=== PATIENT | male | born 1985 | race Caucasian/White ===

== ENCOUNTER → 2022-12-06 15:02 | Outpatient (CLI) | payer OTHER, SELFPAY ==
--- NOTE | ~2022-12-06 | XR_ITS ---
EXAMINATION:XR_[id number]_CR DATE: 12/06/2022 15:14 INDICATION: Neck pain TECHNIQUE: AP, lateral, and odontoid views of the cervical spine are provided. COMPARISON: None FINDINGS: Alignment is normal. The odontoid process is intact. No fracture is identified. The vertebr al body heights are maintained. There is mild loss of intervertebral disc space height at C3-4 and C5 -6. Prevertebral soft tissues are normal. IMPRESSION: 1. Mild cervical spondylosis without acute findings. Reviewed, dictated and finalized at location B.
== END ==
PROVIDERS: PCP Internal Medicine; Visit Provider Clinical Nurse Specialist
DX: M47.892 Other spondylosis, cervical region (principal)
CPT/HCPCS: 72040

== ENCOUNTER 2023-01-28 09:48 | Emergency (ER) | payer OTHER, SELFPAY ==
[2023-01-28 09:52] VITALS: BP 138/94; PULSE 90; TEMP 36.7; O2SAT 99
--- NOTE | 2023-01-28 09:53 | ED.EXTPRO ---
HPI - Extremity Problem General Chief complaint: Extremity Problem,Nontraumatic Stated complaint: left leg swelling Time Seen by Provider: 01/28/23 09:53 Source: patient Mode of arrival: ambulatory Limitations: no limitations History of Present Illness HPI Narrative: 37 years old white male was cutting the grass suddenly felt sharp stabbing pain at the lateral side of the calf muscles, not sure if it is a mosquito bite or something else. Patient is concerned about blood Related Data Home Medications Medication Instructions Recorded Confirmed No Home Medications 12/06/22 12/06/22 Allergies Allergy/AdvReac Type Severity Reaction Status Date / Time No Known Allergies Allergy Verified 01/28/23 10:04 Review of Systems Review of Systems: All systems reviewed & are unremarkable except as noted in HPI and below PMFSH Social History Social History Smoking status: Never smoker Alcohol intake: never Substance use: never Lack of Transportation: No Lack of Food: Never True Current Housing: I Have Housing Concerned About Future Housing: No Difficulty Paying Gas/Electric Bills: No Difficulty Paying for Meds: No Currently Unemployed: No Education: Bachelor's Degree Difficulty w/ Childcare or Family Care: No Exam Narrative: General appearance: Well-developed, well-nourished Skin: Normal color Chest and respiratory: Airway patent, no respiratory distress, no accessory muscle use Heart: Regular rate/rhythm Vascular: Normal peripheral pulses, normal capillary refill. Musculoskeletal: Left lower leg exam showed 2.3 cm discolored skin at the left side of the lower leg, consistent with bruises less likely mosquito bite, there is no erythema, there is no rash. Neurologic: Alert and oriented ?3, KITCHEN MANAGER is normal as tested, no gross motor deficit Course Vital Signs Vital signs: Vital Signs Temperature 36.7 C 01/28/23 09:52 Pulse Rate 90 01/28/23 09:52 Blood Pressure 138/94 H 01/28/23 09:52 Pulse Oximetry 99 01/28/23 09:52 Temperature 36.7 C 01/28/23 09:52 Pulse Rate 90 01/28/23 09:52 Blood Pressure 138/94 H 01/28/23 09:52 Pulse Oximetry 99 01/28/23 09:52 MDM - Extremity (Nontraumatic) MDM Narrative Medical decision making narrative: On exam patient have slight bruises at the lateral side of left leg, slightly tender to touch, contusion/bruise this is my concern, mosquito bite is less likely. The calf muscle is soft, nontender, deep vein thrombosis is extremely less likely. Patient does not have any risk factors, physical examination is not consistent with deep vein thrombosis. Patient to be discharged on Tylenol, ibuprofen as needed,. D-dimer was ordered by the triage nurse prior to my examination Differential Diagnosis Differential diagnosis: Likely other (Bruises, contusion, insect bite) Critical Care Time Critical Care Time Critical Care Time: No Discharge Plan Discharge Clinical Impression: Contusion of left leg Qualifiers: Encounter type: initial encounter Qualified Code(s): S80.12XA - Contusion of left lower leg, initial encounter Patient Disposition: Home, Self-Care Condition: Stable Instructions: Antibiotic Form, Contusion in Adults (ED) Additional Instructions: Return if symptoms are worsening , call your family physician for appointment, take Tylenol as as needed for aches and pain, continue home medications., Tylenol, ibuprofen as needed Prescriptions: No Action No Home Medications Follow-up/Referrals: Chas Leon, [Primary Care Provider] -
[2023-01-28 10:27] LABS: D Dimer < 0.27 ug/mL (<0.48)
== END 2023-01-28 10:33 | disposition home or self-care (01) ==
PROVIDERS: Emergency Provider Emergency Medicine; PCP Internal Medicine
DX: S80.12XA Contusion of left lower leg, initial encounter (principal); X58.XXXA Exposure to other specified factors, initial encounter
CPT/HCPCS: 36415; 85380; 99283

== ENCOUNTER 2023-08-14 09:52 | Emergency (ER) | payer OTHER, SELFPAY ==
--- NOTE | 2023-08-14 10:05 | ED.URI ---
HPI - URI/Sore Throat General Chief Complaint: Upper Respiratory Infection Stated Complaint: sorethroat Source: patient, RN notes reviewed and old records reviewed Mode of arrival: ambulatory Limitations: no limitations History of Present Illness HPI Narrative: 38-year-old male presents to [facility] with complaints of myalgias for 2 days with sore throat. Patient denies dizziness, weakness, shortness of breath, chest pain, vomiting. patient using throat lozenges with little relief. MD elicited complaint: sore throat Onset (ago): day(s) (2) Related Data Allergies Allergy/AdvReac Type Severity Reaction Status Date / Time No Known Allergies Allergy Verified 08/14/23 10:19 Review of Systems Constitutional: Constitutional: Reports as per HPI and Reports body ache(s) Eyes: Eyes: Reports no additional eye complaints ENT: Reports as per HPI and Reports sore throat Cardiovascular: Cardiovascular: Reports no additional cardiovascular complaints Respiratory: Respiratory: Reports no additional respiratory complaints Neurologic: Reports system reviewed and no additional complaints, except as documented PMFSH Social History Social History Smoking status: Never smoker Alcohol intake: never Substance use: never Lack of Transportation: No Lack of Food: Never True Current Housing: I Have Housing Concerned About Future Housing: No Difficulty Paying Gas/Electric Bills: No Difficulty Paying for Meds: No Currently Unemployed: No Education: Bachelor's Degree Difficulty w/ Childcare or Family Care: No Comments At the time of my signature, I reviewed and agree with the nursing past medical, surgical, social, and family history. There is no relevant family history pertinent to the patient complaint. Exam Const: General: cooperative, healthy appearing, no acute distress and well nourished Nutritional Appearance: well nourished Orientation/consciousness: patient oriented x3 Limitations: no limitations HENMT: Head: normal to inspection and normocephalic Ears: external ears normal, TM's normal bilaterally, mastoids normal and Abnormal EAC present Face/Nose/Sinus: normal facial exam Face and sinus: normal facial exam Mouth: Yes Normal oral and palatal mucosa present and Yes moist mucous membranes Throat: tonsils normal, uvula midline, posterior oropharynx abnormal erythema and no uvular edema Eyes: General: appearance normal, both eyes and all related structures Sclera: sclerae normal Pupils: Equal, round and reactive pupils present Resp: Effort & Inspection: normal respiratory effort, able to speak in complete sentences, no audible wheezes, no cough, no respiratory distress and no retractions Cardio: Rate: regular rate Skin: General skin exam: normal color and no rashes or lesions noted Neuro: General: patient oriented x3 Cranial nerves: Yes Equal, round and reactive pupils present Psych: Appearance: grossly normal Course Course Emergency Course: Some parts of this dictation were generated by voice recognition software and may contain typographical and/or grammatical inaccuracies. Level of Care: Express Care Visit Vital Signs Vital signs: Reviewed MDM - URI/Sore Throat MDM Narrative Medical decision making narrative: Patient with complaints of sore throat myalgia for 2 days. Patient's strep in clinic today is positive. Will treat for streptococcal pharyngitis. patient resting comfortably without signs or symptoms of acute distress, nontoxic appearing, vital signs stable. Patient appropriate for discharge home and outpatient treatment, with instructions on close monitoring, follow up, when to seek emergency care. Discharge instructions reviewed with patient, as well as provided in writing per nursing staff. The instructions also include specific and strict return/GO TO THE ER as well as f/u information. All questions have been
[2023-08-14 10:13] VITALS: BP 148/87; PULSE 90; RESP 16; TEMP 36.6; O2SAT 98
== END 2023-08-14 10:25 | disposition home or self-care (01) ==
PROVIDERS: Emergency Provider Registered Nurse; PCP Nurse Practitioner
DX: J02.0 Streptococcal pharyngitis (principal)
CPT/HCPCS: 87880; 99213; G0463

== ENCOUNTER 2025-01-17 10:26 | Emergency (ER) | payer OTHER, SELFPAY ==
--- NOTE | 2025-01-17 10:27 | ED.EYEPROB ---
HPI - Eye Problem General Chief complaint: Eye Problems Stated complaint: right eye irritation Time Seen by Provider: 01/17/25 10:27 Source: patient Mode of arrival: ambulatory Limitations: no limitations History of Present Illness HPI Narrative: David is a 39-year-old male patient presenting to the clinic today with complaints of right eye irritation x2 days. He reports his son had conjunctivitis last weekend. States he has has itchy, mild pain, watery eyes and he is waking up multiple times a night with his eye matted shut. States that the drainage is yellow in color. No URI symptoms. No fevers, chills, body aches. Related Data Home Medications Medication Instructions Recorded Confirmed Last Taken Type escitalopram oxalate 10 mg tablet mg 01/17/25 Unknown History rosuvastatin 10 mg tablet mg 01/17/25 Unknown History Allergies Allergy/AdvReac Type Severity Reaction Status Date / Time No Known Allergies Allergy Verified 01/17/25 10:28 Review of Systems Review of Systems: Pertinent positives per HPI. Patient denies any fever, chills, rash, headache, visual changes, dizziness, cough, shortness of breath, chest pain, palpitations, nausea, vomiting, diarrhea, constipation, abdominal pain, or any urinary issues. PMFSH Social History Social History Smoking status: Never smoker Alcohol intake: never Substance use: never Lack of Transportation: No Lack of Food: Never True Current Housing: I Have Housing Concerned About Future Housing: No Difficulty Paying Gas/Electric Bills: No Difficulty Paying for Meds: No Currently Unemployed: No Education: Bachelor's Degree Difficulty w/ Childcare or Family Care: No Comments At the time of my signature, I reviewed and agree with the nursing past medical, surgical, social, and family history. There is no relevant family history pertinent to the patient complaint. Exam Narrative: General: Well-developed, well nourished, in no apparent distress Head: Normocephalic, atraumatic Eyes: Pupils equally round and reactive to light bilaterally, EOM intact, left sclera and conjunctive clear, right sclera and conjunctiva injected with yellow mucopurulent discharge, lids normal Ears: TMs intact and clear, ear canals clear, no drainage, grossly hearing normal. Nose: Nares patent, no discharge, no inflammation, no sinus tenderness. Mouth: Oral pharynx without lesions or masses, good dentition, MMM. Neck: Supple, trachea midline, no enlargement of anterior or posterior cervical nodes, no thyroid masses or goiter palpable. Cardio: Regular rate and rhythm, s1 and s2 normal, no murmur appreciated. Resp: Clear to auscultation bilaterally, no rhonchi, rales, wheezing or rubs Course Course Emergency Course: Portions of this record may have been created with voice recognition software. Level of Care: Express Care Visit Vital Signs Vital signs: Vital Signs Temperature 36.7 C 01/17/25 10:36 Pulse Rate 68 01/17/25 10:36 Respiratory Rate 18 01/17/25 10:36 Blood Pressure 137/91 H 01/17/25 10:36 Pulse Oximetry 98 01/17/25 10:36 Oxygen Delivery Room Air 01/17/25 10:36 Temperature 36.7 C 01/17/25 10:36 Pulse Rate 68 01/17/25 10:36 Respiratory Rate 18 01/17/25 10:36 Blood Pressure 137/91 H 01/17/25 10:36 Pulse Oximetry 98 01/17/25 10:36 Oxygen Delivery Room Air 01/17/25 10:36 Vital signs reviewed MDM - Eye Problem MDM Narrative Medical decision making narrative: At the time of visit patient is resting comfortably on the exam table. Patient appears to be nontoxic. Plan: I suspect patient has right conjunctivitis. Prescription for tobramycin eyedrops was sent to the pharmacy. Supportive measures were discussed with the patient and they voiced understanding discharge instructions and agrees to treatment plan. Return precautions reviewed Differential Diagnosis Differential diagnosis: Likely corneal abrasion, conjunctivitis, acute iritis, hyphema, periorbital cellulitis, subconjunctival hemorrhage, glaucoma, corneal ulcer and ruptured globe Discharge Plan Discharge Clinical Impression: Conjunctivitis Qualifiers: Conjunctivitis type: acute Acute conjunctivitis type: bacterial Laterality: right Qualified Code(s): H10.31 - Unspecified acute conjunctivitis, right eye Patient Disposition: Home Condition: Stable Instructions: Antibiotic Form, Conjunctivitis (ED) Additional Instructions: Conjunctivitis is considered contagious for 24 hours while on the antibiotic. Practice good hand washing techniques Avoid touching eyes Instill eyedrops as prescribed-tobramycin May use warm moist washcloth to help remove eye discharge If eyes are matted shut-do not pry eyes open-use a warm moist cloth to loosen matting and wipe matter away from eye May take Tylenol/Motrin as needed for pain or fever May take Benadryl as needed for itching Follow-up with your PCP in 3-5 days if symptoms persist or sooner if they worsen Go to the emergency room if you develop any fever that is not controlled by Tylenol or Motrin, loss of vision, eye pain, increase eye swelling,visual changes, headache, confusion, lethargy, weakness, chest pain, or shortness of breath. Patient Language: Serbian Prescriptions: New tobramycin 0.3 % drops 1 drp RIGHT EYE Q4H 7 Days Qty: 5 0RF No Action escitalopram oxalate 10 mg tablet rosuvastatin 10 mg tablet Follow-up/Referrals: Lidia,Remy Sy M.D. [Primary Care Provider] - Time of Disposition: 10:39 Quality NIHSS Nursing Documentation ED NIHSS nursing documentation: reviewed/agree
--- OUTSIDE RECORDS SUMMARY | 2025-01-17 10:28 | XMS_ITS | Referral Summary ---
Author Organization [facility] [address] Address [address] [place] [address] Care Team Providers Care Moose Hunter Name Role Phone Amarjit Ivey MD Unavailable +- [phone] Remy Murillo MD Primary Care Provi clara Encounters Date Type Department Care Team Description 01/12/2025 2:45 PM CDT Telemedicine [facility] Family Medicine [address] [facility] [address] [place] [address] Remy Murillo MD Mixed dyslipidemia (Primary Dx); Neuropathy; Anxiety 12/31/2024 7:50 AM CDT - 12/31/2024 11:59 PM CDT Hospital Encounter [facility] [address] [place] [address] Advanced Medicine [address] [place] [address] Cristian Whittaker MD Lumbar radiculopathy Discharge Disposition: Discharge to home or self care 12/28/2024 Telephone [facility] [address] [place] [address] for Advanced Medicine [address] [place] [address] Cristian Whittaker MD PMC Preprocedure 12/18/2024 Telephone [facility] [address] [place] [address] Advanced Medicine [address] [place] [address] Tonya Sanchez RN 12/15/2024 7:59 AM CDT - 12/15/2024 11:59 PM CDT Hospital Encounter [facility] Advanced Medicine [address] [place] [address] Advanced [facility] [address] [place] [address] Cristian Whittaker MD Lumbar radiculopathy (Primary Dx); Anterolisthesis of lumbosacral spine Discharge Disposition: Discharge to home or self care 12/05/2024 2:13 PM CDT - 12/05/2024 11:59 PM CDT Hospital Encounter [facility] [address] [place], [place] [address] Abdominal pain; Abdominal bloating Discharge Disposition: Discharge to home or self care 11/26/2024 11:45 AM CDT Telemedicine [facility] Family Medicine [address] [facility] [address] [place] [address] Remy Murillo MD Muscle cramps (Primary Dx); Chronic bilateral low back pain without sciatica 11/21/2024 7:48 AM CDT - 11/21/2024 11:59 PM CDT Hospital Encounter [facility] [address] [place] [address] Lumbar stenosis with neurogenic claudication; Lumbar radiculopathy Discharge Disposition: Discharge to home or self care from Last 3 Months Allergies No known active allergies Medications rosuvastatin (CRESTOR) 10 mg tablet Take 1 tablet (10 mg total) by mouth daily 90 tablet 1 5 10/19/19 26 Active escitalopram (LEXAPRO) 10 mg tabletIndicatio ns:Generalized Anxiety Disorder Take 1 tablet (10 mg total) by mouth daily 30 tablet 1 5 Active amitriptyline (ELAVIL) 10 mg tablet Take 1 tablet (10 mg total) by mouth nightly 5 01/13/20 25 Discontinu ed(Patient Reported) Active Problems Problem Noted Date Diagnosed Date Anxiety 01/12/2025 Lumbar radiculopathy 12/31/2024 Neuropathy 09/27/2021 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 Doing well with Pepcid. Continue current management. Continue follow up with GI as needed. 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 Resolved Problems Problem Noted Date Diagnosed Date Resolved Date Post covid-19 condition, unspecified 09/27/2021 01/12/2025 Abdominal pain 09/27/2021 11/26/2024 Bloating 09/27/2021 11/26/2024 Routine adult health maintenance 05/13/2020 11/26/2024 Overview (04/01/2024): Health Maintenance: -PCV13 vaccine: N/A -PPSV23 vaccine: N/A -Tdap vaccine: 10/31/15 -Influenza vaccine: due -Shingles vaccine: N/A -Colonoscopy: 04/01/24 -Last PSA: N/A -Last eye exam: N/A -Last MHA: N/A Assessment & Plan (01/26/2021 11:38 AM CDT): Health Maintenance: -PCV13 vaccine: N/A -PPSV23 vaccine: N/A -Tdap vaccine: 10/31/15 -Influenza vaccine: due -Shingles vaccine: N/A -Colonoscopy: N/A -Last PSA: N/A -Last eye exam: N/A -Last MHA: N/A Patient is up-to-date on health maintenance. I have filled out his physical form today. This was scanned into his chart. I have ordered his annual screening labs. Continue with healthy diet and exercise habits. See me annually for routine physicals. Assessment & Plan (06/16/2020 8:55 AM CDT): Health Maintenance: -PCV13 vaccine: N/A -PPSV23 vaccine: N/A -Tdap vaccine: -Influenza vaccine: -Shingles vaccine: N/A -Colonoscopy: N/A -Last PSA: N/A -Last eye exam: does not wear glasses or lenses -Last MHA: N/A Assessment & Plan (05/13/2020 10:51 AM CDT): Follow-up 1 year for annual physical. Continue eating healthy. Limit processed foods like white starches, fast food, sweets and soda. Increase your vegetable intake and limit red meat. Continue exercising and wearing your seatbelt at all times. No texting and driving. Continue to manage your stress in a healthy manner. Arthralgia of shoulder 03/22/201411/26 Immunizations Immunization Administration Dates Next Due Influenza, Quadrivalent, Spl it, Intramuscular 05/27/2019 Influenza, Quadrivalent, Spl it, Preservative Free, Intramuscular 05/27/2019,07/01/2018,05/30/2016 Influenza, Unspecified 08/09/2020(Deferr ed: Patient Refused),06/16/2020(Deferred: Patient Refused),06/02/2020(Deferred: Patient Refused),06/02/2020(Deferred: Patient Refused),05/27/2019 MMR 10/30/2018,09/30/2018 Tdap 10/31/2015 Social History Tobacco Use Types Packs/Day Years Used Date Smoking Tobacco: Never Smokeless Tobacco: Never Tobacco Cessation:Counseling Given: Not Answered Alcohol Use Standard Drinks/Week Comments Not Currently 0 (1 standard drink = 0.6 oz pur e alcohol) AUDIT-C Answer Date Recorded Q1: How often do you have a drink containing alcohol? Never 12/31/2024 Q2: How many drinks containi ng alcohol do you have on a typical day when you are drinking? Patient does not drink Q3: How often do you have si x or more drinks on one occasion? Never 12/31/2024 PHQ-2 Answer Date Recorded PHQ-2 Total Score (If total score is 3 or more points, staff should administer the PHQ-9) 0 08/10/2024 Hunger Vital Sign Answer Date Recorded Within the past 12 months, y ou worried that your food would run out before you got the money to buy more. Never true 09/30/19 25 Within the past 12 months, t he food you bought just didn't last and you didn't have money to get more. 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 Author CCM Chronic Pain Care Plan Chronic Care Management On track(2024 8:09 AM CDT) Charlene Saba, RN Note: Problem: Chronic Pain Goals: 1. Minimize further functional decline 2. Maximize quality of life 3. Control pain Strategies: - Activity/exercise program recommendation - Conservative stepwise pain medicine strategy with multi-disciplinary approach - Recommend healthy lifestyle strategies and compensatory methods as needed Procedures Procedure Name Priority Date/Time Associated Diagnosis Comments PAIN MGMT IMAGING LUMBAR/SACRAL SELECTIVE NERVE ROOT INJ (TFE) BILATERAL Schedule Routine, Read Routine (OP Routine) 12/31/2024 8:39 AM CDT Lumbar radiculopathy CT ABDOMEN PELVIS W CONTRAST Schedule Routine, Read Routine (OP Routine) 12/05/2024 2:48 PM CDT Abdominal pain Abdominal bloating MRI LUMBAR SPINE WO CONTRAST Schedule Routine, Read Routine (OP Routine) 11/21/2024 8:25 AM CDT Lumbar stenosis with neurogenic claudication Lumbar radiculopathy from Last 3 Months Results * Imaging Lumbar/Sacral Selective Nerve Root INJ (TFE) Bilateral ([id number]) (12/31/2024 8:39 AM CDT) Narrative [facility] - 12/31/2024 8:39 AM CDT The images from this study are not interpreted by Radiology. Please refer to the physician's procedure / OR operative note. us Cristian Salcedo MD IMG PAIN MGMT PROCEDU RES Final Result [facility] * CT Abdomen Pelvis W Contrast (12/05/2024 2:48 PM CDT) Anatomical Region Laterality Modality Body N/A Computed Tomogra phy 12/13/2024 10:3 7 AM CDT Addenda Addendum by Edith Welch MD on 12/23/2024 8:35 AM CDT ADDENDUM: This addendum report supersedes the original report dated 12/05/2024 Correction below to voice recognition error leading to known population of the dictation macro under gallbladder: GALLBLADDER: No stones, wall thickening or pericholecystic fluid END OF ADDENDUM REPORT THIS IS AN ELECTRONICALLY VERIFIED FINAL REPORT 12/23/2024 8:35 AM Addendum Electronically signed by Edith Cramer M.D. FT: FT Report ID: [id number] Reading Location: [id number] Narrative 12/13/2024 10:39 AM CDT EXAM DESCRIPTION: CT ABDOMEN PELVIS W CONTRAST REASON FOR STUDY: abdominal pain Upper abd pain. Chronic. TECHNIQUE: CT scan of the abdomen and pelvis performed with intravenous and without oral contrast using helical scanning technique with dynamic intravenous contrast injection. Reconstructed coronal and sagittal MPR images reviewed. All images stored on PACS. Automated exposure control was used as a dose optimization technique for this examination. CONTRAST TYPE/DOSE: 100mL of IOVERSOL 350 MG IODINE/ML INTRAVENOUS SYRINGE injected via intravenous COMPARISON: CT abdomen pelvis 06/29/2020 FINDINGS: LOWER CHEST: No significant pulmonary abnormalities. No effusion. LIVER: Normal size. No identified cystic or solid masses. GALLBLADDER: 2 BILE DUCTS: No intrahepatic or extrahepatic ductal dilatation. SPLEEN: Normal size. No focal lesions. PANCREAS: No identified cystic or solid masses. No significant calcifications. No adjacent inflammation or peripancreatic fluid collections. Pancreatic duct not dilated. ADRENALS: Normal. KIDNEYS/URINARY TRACT: No identified significant cystic or solid masses. No visualized stones. No hydronephrosis or hydroureter. Symmetric enhancement. Urinary bladder is unremarkable. GI: No dilated bowel loops. No obvious wall thickening. No significant diverticular disease. PERITONEUM: No ascites or free air. RETROPERITONEUM: No mass or adenopathy. REPRODUCTIVE: No significant abnormality. VASCULATURE: No abdominal aortic aneurysm. MUSCULOSKELETAL: No significant abnormality. OTHER: No other abnormality. IMPRESSION: No acute finding. THIS IS AN ELECTRONICALLY VERIFIED FINAL REPORT 12/13/2024 10:39 AM - Electronically signed by Edith Cramer M.D. FT: FT Report ID: [id number] Reading Location: [id number] Procedure Note Edith Welch MD - 12/13/2024 EXAM DESCRIPTION: CT ABDOMEN PELVIS W CONTRAST REASON FOR STUDY: abdominal pain Upper abd pain. Chronic. TECHNIQUE: CT scan of the abdomen and pelvis performed with intravenousand without oral contrast using helical scanning technique with dynamic intravenous contrast injection. Reconstructed coronal and sagittal MPRimages reviewed. All images stored on PACS. Automated exposure control was usedas a dose optimization technique for this examination. CONTRAST TYPE/DOSE: 100mL of IOVERSOL 350 MG IODINE/ML INTRAVENOUSSYRINGE injected via intravenous COMPARISON: CT abdomen pelvis 06/29/2020 FINDINGS: LOWER CHEST: No significant pulmonary abnormalities. Noeffusion. LIVER: Normal size. No identified cystic or solid masses. GALLBLADDER: 2 BILE DUCTS: No intrahepatic or extrahepatic ductal dilatation. SPLEEN: Normal size. No focal lesions. PANCREAS: No identified cystic or solid masses. No significant calcifications. No adjacent inflammation or peripancreatic fluidcollections. Pancreatic duct not dilated. ADRENALS: Normal. KIDNEYS/URINARY TRACT: No identified significant cystic or solid masses.No visualized stones. No hydronephrosis or hydroureter. Symmetricenhancement. Urinary bladder is unremarkable. GI: No dilated bowel loops. No obvious wall thickening. No significant diverticular disease. PERITONEUM: No ascites or free air. RETROPERITONEUM: No mass or adenopathy. REPRODUCTIVE: No significant abnormality. VASCULATURE: No abdominal aortic aneurysm. MUSCULOSKELETAL: No significant abnormality. OTHER: No other abnormality. IMPRESSION: No acute finding. THIS IS AN ELECTRONICALLY VERIFIED FINAL REPORT 12/13/2024 10:39 AM - Electronically signed by Edith Cramer M.D. FT: FT Report ID: [id number] Reading Location: [place] [address] Dalia Max MD IMG CT PROCEDURES Edited Result - Final * MRI Lumbar Spine WO Contrast (11/21/2024 8:25 AM CDT) Anatomical Region Laterality Modality Spine N/A Magnetic Resonan ce 11/22/2024 1:21 AM CDT Impressions 11/22/2024 10:14 AM CDT 1. Chronic bilateral L5 pars defects with grade 1 anterolisthesis of L5 on S1. 2. Mild degenerative changes of the lumbar spine, most pronounced at L5-S1 with mild to moderate left neuroforaminal stenosis, as described above. No high-grade spinal canal or neuroforaminal stenosis. Electronically signed by: Andrew Riley M.D. Narrative 11/22/2024 10:14 AM CDT EXAMINATION: Magnetic resonance imaging (MRI) of the lumbar spine without contrast HISTORY: Low back pain TECHNIQUE: Multiplanar multi-weighted MRI of the lumbar spine was performed without intravenous contrast using the standard protocol. COMPARISON: Body CT dated 06/29/2020 FINDINGS: There is grade 1 anterolisthesis of L5 on S1, measuring up to 4 mm. There is mild L4 on L5 retrolisthesis. Chronic bilateral L5 pars defects are again noted, somewhat to the prior CT dated 06/21/2020. Vertebral bodies demonstrate normal signal intensity on all sequences. Schmorl's nodes are noted along the inferior endplate of T12 and L1 vertebral bodies. There are no compression fractures. The conus medullaris terminates at the level of L1. The distal spinal cord signal intensity is normal. Disc desiccation is noted at L4-L5 and L5-S1. Annular fissures are present at L4-L5 and L5-S1. Limited views of the abdomen and pelvis show no soft tissue abnormality. The aorta is normal. L1-L2: The disc is normal in configuration. There is no facet arthropathy. There is no neuroforaminal stenosis. There is no spinal canal stenosis. L2-L3: The disc is normal in configuration. There is no facet arthropathy. There is no neuroforaminal stenosis. There is no spinal canal stenosis. L3-L4: The disc is normal in configuration. There is mild bilateral facet arthropathy. There is no neuroforaminal stenosis. There is no spinal canal stenosis. L4-L5: Mild disc bulge. There is mild bilateral facet arthropathy. There is no neuroforaminal stenosis. There is no spinal canal stenosis. L5-S1: Posterior disc uncovering and mild to moderate disc bulge. There is mild to moderate bilateral facet arthropathy. There is mild to moderate left and mild right neuroforaminal stenosis. There is no spinal canal stenosis. Procedure Note Andrew Riley MD - 11/22/2024 EXAMINATION: Magnetic resonance imaging (MRI) of the lumbar spine without contrast HISTORY: Low back pain TECHNIQUE: Multiplanar multi-weighted MRI of the lumbar spine was performed without intravenous contrast using the standard protocol. COMPARISON: Body CT dated 06/29/2020 FINDINGS: There is grade 1 anterolisthesis of L5 on S1, measuring up to 4 mm. There is mild L4 on L5 retrolisthesis. Chronic bilateral L5 pars defects are again noted, somewhat to the prior CT dated 06/21/2020. Vertebral bodies demonstrate normal signal intensity on all sequences. Schmorl's nodes are noted along the inferior endplate of T12 and L1 vertebral bodies. There are no compression fractures. The conus medullaris terminates at the level of L1. The distal spinal cord signal intensity is normal. Disc desiccation is noted at L4-L5 and L5-S1. Annular fissures are present at L4-L5 and L5-S1. Limited views of the abdomen and pelvis show no soft tissue abnormality. The aorta is normal. L1-L2: The disc is normal in configuration. There is no facet arthropathy. There is no neuroforaminal stenosis. There is no spinal canal stenosis. L2-L3: The disc is normal in configuration. There is no facet arthropathy. There is no neuroforaminal stenosis. There is no spinal canal stenosis. L3-L4: The disc is normal in configuration. There is mild bilateral facet arthropathy. There is no neuroforaminal stenosis. There is no spinal canal stenosis. L4-L5: Mild disc bulge. There is mild bilateral facet arthropathy. There is no neuroforaminal stenosis. There is no spinal canal stenosis. L5-S1: Posterior disc uncovering and mild to moderate disc bulge. There is mild to moderate bilateral facet arthropathy. There is mild to moderate left and mild right neuroforaminal stenosis. There is no spinal canal stenosis. IMPRESSION: 1. Chronic bilateral L5 pars defects with grade 1 anterolisthesis of L5 on S1. 2. Mild degenerative changes of the lumbar spine, most pronounced at L5-S1 with mild to moderate left neuroforaminal stenosis, as described above. No high-grade spinal canal or neuroforaminal stenosis. Electronically signed by: Andrew Riley M.D. Cristian Salcedo MD [facility] MRI PROCEDURES Fi nal Result from Last 3 Months Insurance [facility] PLUS [facility] PL[facility] Care Teams Moose Hunter Relationship Specialty Start Date End Date Remy Murillo MD [address] [address] PCP - General Family Medicine 08/10/24 Amarjit Ivey MD [address] [place] [address] Consulting Physician Family Medicine 06/14/20
--- OUTSIDE RECORDS SUMMARY | 2025-01-17 10:28 | XMS_ITS | Clinical Summary ---
Author Organization [facility] Address [address] [place] [address] [place] [phone] Phone Care Team Providers Care Esthetic Dermatologist Name Role Phone Provider, None Primary Care Provider Unavailabl e Allergies No known active allergies Medications albuterol (PROVENTIL HFA, VENTOLIN HFA) 108 (90 BASE) MCG/ACT Aerosol SolutionIndicati ons:Acute bronchitis, unspecified organism take 2 Puffs by inhalation every 4 hours as needed for Wheezing. 1 Inhaler 0 6 Active Spacer/Aero Chamber Mouthpiece MiscIndications: Acute bronchitis, unspecified organism 1 Units by Does not apply route every 4 hours as needed. 1 Each 0 6 Active Active Problems No known active problems Social History Tobacco Use Types Packs/Day Years Used Date Smoking Tobacco: Never Smokeless Tobacco: Never Tobacco Cessation:Counseling Given: No Alcohol Use Standard Drinks/Week Comments Not Asked 0 (1 standard drink = 0.6 oz pur e alcohol) Sex and Gender Information Value Date Recorded Sex Assigned at Not on file Legal Sex Male 12:31 PM CDT Gender Identity Not on file Sexual Orientation Not on file Last Filed Vital Signs Vital Sign Reading Time Taken Comments Blood Pressure 121/66 04/10/2016 3:53 PM CDT Pulse 60 04/10/2016 3:53 PM CDT Temperature 37.1 C (98.8 F) 04/10/2016 3:53 PM CDT Respiratory Rate 18 04/10/2016 3:53 PM CDT Oxygen Saturation 100% 04/10/2016 3:53 PM CDT Inhaled Oxygen Concentration - - Weight 80.7 kg (178 lb) 04/10/2016 3:53 PM CDT Height 180.3 cm (5' 11 ) 04/10/2016 3:53 PM CDT Body Mass Index 24.83 04/10/2016 3:53 PM CDT Plan of Treatment Health Maintenance Due Date Last Done Comments Hepatitis C Virus (HCV) Screening 1983 TdaP Immunization 1983 Hepatitis B Immunization (1 of 3 - 19+ 3-dose series) 2002 Influenza Immunization (#1) 2024 SARS-COV-2 Immunization ( season) 2024 Respiratory Syncytial Virus (RSV) Immunization (Adult) (1 - 1-dose 75+ series) 2058 Meningococcal Immunization (ACWY) Aged Out No longer eligible based on patient's age to complete this topic Pneumococcal Immunization Combined Aged Out No longer eligible based on patient's age to complete this topic Rotavirus Immunization Aged Out No lo nger eligible based on patient's age to complete this topic [place] [address] [place] [id number] Care Teams Esthetic Dermatologist Relationship Specialty Start Date End Date Provider, None [place] PCP - General 04/10/16
--- OUTSIDE RECORDS SUMMARY | 2025-01-17 10:28 | XMS_ITS | Continuity of Care Document ---
Author Organization [facility] [place] Address [address] [place] [address] [address] [place] [address] Phone Care Team Providers Care Shellfish Manager Name Role Phone Omar Cam PT Unavailable Unavailable Procedures Procedure Date Progress Note Therapeutic Activities Manual Therapy Neuromuscular Re-Ed Therapeutic Exercise Therapeutic Exercise Therapeutic Activities Manual Therapy Neuromuscular Re-Ed Therapeutic Activities Manual Therapy Therapeutic Exercise Neuromuscular Re-Ed Neuromuscular Re-Ed Therapeutic Activities Manual Therapy Therapeutic Exercise Therapeutic Activities Therapeutic Exercise Neuromuscular Re-Ed Manual Therapy Therapeutic Activities Neuromuscular Re-Ed Manual Therapy Therapeutic Exercise Therapeutic Activities Neuromuscular Re-Ed Manual Therapy Therapeutic Exercise Neuromuscular Re-Ed Therapeutic Exercise Therapeutic Activities Manual Therapy PT Evaluation Low Complexity Manual Therapy Therapeutic Exercise PT Re-evaluation Therapeutic Activities Neuromuscular Re-Ed Therapeutic Exercise Manual Therapy Therapeutic Activities Neuromuscular Re-Ed Therapeutic Exercise Manual Therapy Therapeutic Activities Neuromuscular Re-Ed Therapeutic Exercise Manual Therapy Therapeutic Activities Neuromuscular Re-Ed Therapeutic Exercise Manual Therapy Neuromuscular Re-Ed Therapeutic Exercise Manual Therapy PT Evaluation Low Complexity Therapeutic Exercise Manual Therapy Advance Directives Directive Yes / No Effective Date File Name No Information Encounters Encounter Description Practice Location Reason(s) For Visit Diagnoses Date Provider Providers Copied on Encounter [facility], [id number], tel:[phone] [place] No Information Tutu Nelson. . [facility] [address], [place], [place], [id number], tel:[phone] [place] No Information Dellambarry Nelson. . Referring Provider: Access Direct. [facility] [address], [place], [place], [id number], tel:[phone] [place] No Information Tutu Nelson. . Referring Provider: Access Direct. [facility] [address], [place], [place], [id number], tel:[phone] [place] No Information Dellambarry Nelson. . Referring Provider: Access Direct. [facility] [address], [place], [place], [id number], tel:[phone] [place] No Information Tutu Nelson. . Referring Provider: Access Direct. [facility] [place] [address] [facility], [place], [place], [id number], tel:[phone] [place] No Information Godfrey Domínguezla. [address] [facility], [address], [place], [place], [facility], . tel:[phone] Referring Provider: Access Direct. [facility] [address], [place], [place], [address], tel:[phone] [place] No Information Dellamano Omar. . Referring Provider: Access Direct. [facility] [address], [place], [place], [id number], tel:[phone] [place] No Information Dellamano Omar. . Referring Provider: Access Direct. [facility] [address], [place], [place], [id number], tel:[phone] [place] No Information Dellamano Omar. . Referring Provider: Access Direct. [facility] [address], [place], [place], [id number], tel:[phone] [place] No Information Dellamano Omar. . Referring Provider: Access Direct. [facility] [address], [place], [place], [id number], tel:[phone] [place] No Information Dellamano Omar. . Referring Provider: Access Direct. [facility] [address], [place], [place], [address], tel:[phone] [place] No Information Dellamano Omar. . Referring Provider: Access Direct. [facility] [address], [place], [place], [address], tel:[phone] [place] No Information Dellamano Omar. . Referring Provider: Access Direct. [facility], [address], [place], [place], [id number], tel:[phone] [place] No Information Tutu Nelson. . Referring Provider: Access Direct. [facility], [address], [place], [place], [id number], tel:[phone] [place] No Information Tutu Nelson. . Referring Provider: Access Direct. [facility], [address], [place], [place], [address], tel:[phone] [place] No Information Tutu Nelson. . Referring Provider: Access Direct. Family History Family Member Type Diagnosis Age At Onset No Information Payers Payer name Insurance type Covered republican ID Authorcalderon chicas(s) [employer] [id number] Social History Type Description Quantity Date Captured Comments Sex Male Smoking Status No Information Chief Complaint And Reason For Visit No Information Reason For Referral Reason For Referral No Information Plan Of Treatment Date Type Action Status Referral Ordered: PCP timeframe: 1 week. (related to Overweight) ordered Referral Ordered: Weight management: Referral to physician timeframe: 1 Month (related to Overweight) ordered History Of Present Illness Encounter Date Complaint History Of Prese nt Illness No Information Functional Status Date Functional Assessmen t No Information Instructions Date Instruction Additional Infor mation No Information Assessments Type Assessment Date No Information Patient Care Teams Name Effective Dates (start - stop) Status Members No Information
--- OUTSIDE RECORDS SUMMARY | 2025-01-17 10:28 | XMS_ITS | Clinical Summary ---
Author Organization [facility] Personally Address [address] [facility] [place] [address] Care Team Providers Care Jacker Feeder Name Role Phone Amarjit Ivey MD Primary Care Provider [phone] Source Comments [facility] Personally,non-owned Affiliates and Associated Physician Practices is amultiple site organization consisting of ambulatory clinics and hospital sitesin [place], [place], [place] and [place]. This disclosure is being madepursuant to the Care Everywhere program and may not contain all information available regarding this patient. Last updated 18.[employer] Personally Allergies No known active allergies Medications * Be aware that medications may not be up to date on this document. Alwaysverify current medications with the patient. No known medications Immunizations Immunization Administration Dates Next Due MMR 10/30/2018,09/30/2018 Social History Tobacco Use Types Packs/Day Years Used Date Smoking Tobacco: Never Smokeless Tobacco: Never Tobacco Cessation:Counseling Given: Yes PHQ-2 Answer Date Recorded PHQ2 TOTAL SCORE 0 10/21/2021 Sex and Gender Information Value Date Recorded Sex Assigned at Not on file Legal Sex Male 4:36 PM GLOBAL CLIMATE CHANGE RESEARCHER Gender Identity Not on file Sexual Orientation Not on file Last Filed Vital Signs Vital Sign Reading Time Taken Comments Blood Pressure 130/70 10/21/2021 12:53 PM GLOBAL CLIMATE CHANGE RESEARCHER Pulse 55 10/21/2021 12:51 PM GLOBAL CLIMATE CHANGE RESEARCHER Temperature 36.3 C (97.3 F) 10/21/2021 12:51 PM GLOBAL CLIMATE CHANGE RESEARCHER Respiratory Rate 18 10/21/2021 12:51 PM GLOBAL CLIMATE CHANGE RESEARCHER Oxygen Saturation 100% 10/21/2021 12:51 PM GLOBAL CLIMATE CHANGE RESEARCHER Inhaled Oxygen Concentration - - Weight 77.1 kg (170 lb) 10/21/2021 12:53 PM GLOBAL CLIMATE CHANGE RESEARCHER Height 180.3 cm (5' 11 ) 10/21/2021 12:53 PM GLOBAL CLIMATE CHANGE RESEARCHER Body Mass Index 23.71 10/21/2021 12:53 PM GLOBAL CLIMATE CHANGE RESEARCHER Plan of Treatment Health Maintenance Due Date Last Done Comments LIPID TESTING 1983 HIV SCREENING 1998 HEPATITIS C SCREENING 04/26/2001 DTAP/TDAP/TD VACCINES (1 - Tdap) 2002 HEPATITIS B VACCINE (1 of 3 - 19+ 3-dose series) 2002 COVID-19 VACCINE (1 - 2023-2 5 season) 2024 DEPRESSION SCREENING 09/02/2024 INFLUENZA VACCINE (Season Ended) 2025 05/27/2019, 07/01/2018, 05/30/2016 ZOSTER VACCINE (1 of 2) 2033 HIB VACCINE Aged Out No longer eligi ble based on patient's age to complete this topic HPV VACCINE Aged Out No longer eligi ble based on patient's age to complete this topic MENINGOCOCCAL (Group B) VACCINE SHARED DECISION-MAKING Aged Out No longer eligible based on patient's age to complete this topic MENINGOCOCCAL GROUPS A/C/Y/W VACCINE Aged Out No longer eligible b ased on patient's age to complete this topic PNEUMOCOCCAL VACCINE Aged Out No long er eligible based on patient's age to complete this topic Insurance ANTHEM Care Teams Jacker Feeder Relationship Specialty Start Date End Date Amarjit Ivey MD [address] [facility] [address] [place] [address] PCP - General Family Medicine 10/21/21
--- OUTSIDE RECORDS SUMMARY | 2025-01-17 10:28 | XMS_ITS | Clinical Summary ---
Author Organization [facility] [address] Address [address] [place] [address] Care Team Providers Care Sales Architect Name Role Phone Amarjit Ivey MD Unavailable [phone] Remy Murillo MD Primary Care Provi clara Allergies No known active allergies Medications rosuvastatin [...] Mixed dyslipidemia 08/09/2020 GERD (gastroesophageal reflux disease) 0 Assessment & Plan (01/26/2021 11:39 AM CDT): [...] a healthy manner. Arthralgia of shoulder 03/22/201411/26 Encounters Date Type Department Care Team Description 01/12/2025 2:45 PM CDT Telemedicine [facility] Family Medicine [address] [facility] [address] [place] [address] Remy Murillo MD Mixed dyslipidemia (Primary Dx); Neuropathy; Anxiety 12/31/2024 7:50 AM CDT - 12/31/2024 11:59 PM CDT Hospital Encounter [facility] [address] [facility] [address] [place] [address] Cristian Whittaker MD Lumbar radiculopathy Discharge Disposition: Discharge to home or self care 12/28/2024 Telephone [facility] Advanced Medicine [address] [place] [address] Advanced Medicine [address] [place] [address] Cristian Whittaker MD [facility] Preprocedure 12/18/2024 Telephone [facility] at the [address] [place] [address] Tonya Sanchez RN 12/15/2024 7:59 AM CDT - 12/15/2024 11:59 PM CDT Hospital Encounter [facility] the [address] [place] [address] Cristian Whittaker MD Lumbar radiculopathy (Primary Dx); Anterolisthesis of lumbosacral spine Discharge Disposition: Discharge to home or self care 12/05/2024 2:13 PM CDT - 12/05/2024 11:59 PM CDT Hospital Encounter [facility] [address] [place] [address] Abdominal pain; Abdominal bloating Discharge Disposition: Discharge to home or self care 11/26/2024 11:45 AM CDT Telemedicine [facility] Family Medicine [address] [facility] [address] [place] [address] Remy Murillo MD Muscle cramps (Primary Dx); Chronic bilateral low back pain without sciatica 11/21/2024 7:48 AM CDT - 11/21/2024 11:59 PM CDT Hospital Encounter [facility] [address] [address] Lumbar stenosis with neurogenic claudication; Lumbar radiculopathy Discharge Disposition: Discharge to home or self care from Last 3 Months Immunizations Immunization Administration Dates Next Due Influenza, Quadrivalent, Spl it, Intramuscular 05/27/2019 Influenza, Quadrivalent, Spl it, Preservative Free, Intramuscular 05/27/2019,07/01/2018,05/30/2016 Influenza, Unspecified 08/09/2020(Deferr ed: Patient Refused),06/16/2020(Deferred: Patient Refused),06/02/2020(Deferred: Patient Refused),06/02/2020(Deferred: Patient Refused),05/27/2019 MMR 10/30/2018,09/30/2018 Tdap 10/31/2015 Surgical History Surgery Date Site/Laterality Comments TYMPANOSTOMY TUBE PLACEMENT Medical History Medical History Date Comments Pneumonia H. pylori infection Hip pain, bilateral Bilateral buttock pain Low back pain Cancer (HCC) 2022 Neck pain Family History Medical History Relation Name Comments Atrial fibrillation Father Miller Cancer Father Miller Diabetes Father Miller Prostate cancer Father Miller Anemia Mother Eminence Cancer Mother Eminence Relation Name Status Comments Father Miller Alive Maternal Grandfather Maternal Grandmother Mother Eminence Alive Paternal Grandfather Paternal Grandmother Social History Tobacco Use Types Packs/Day Years [...] on file Legal Sex Male 5:13 AM SCHEDULE CHECKER Gender Identity Male 09/05/2020 4:16 PM SCHEDULE CHECKER Sexual Orientation Straight 09/05/2020 4: 16 PM SCHEDULE CHECKER 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 Not on file Not on file Obstetrics History Last Filed Vital Signs Vital Sign Reading [...] 01/12/2025 2:43 PM CDT Plan of Treatment Health Maintenance Due Date Last Done Comments Hepatitis C Screening 1983 Prostate Cancer Screening-PSA 1983 Varicella Vaccines (1 of 2 - 13+ 2-dose series) 1996 Hepatitis B Screening 2001 Influenza Vaccine (Season Ended) 2025 05/27/2019, 05/27/2019, 05/27/2019, Additional history exists Depression Screening 08/10/2025 08/10/2024, 03/21/2021, 01/26/2021, Additional history exists Regular Well Visit/Exam 18-64 10/19/2025 10/19/2024, 01/26/2021, 05/13/2020, Additional history exists DTaP/Tdap/Td Vaccine (2 - Td or Tdap) 10/30/2025 10/31/2015 HPV Vaccines Aged Out No longer eligi ble based on patient's age to complete this topic Pneumococcal vaccine <65 Aged Out No longer eligible based on patient's age to complete this topic Goals Goal Patient Goal Type Associated Problems Recent Progress Patient-Stated? Author CCM Chronic Pain Care Plan Chronic Care Management On track(2024 8:09 AM CDT) No Charlene Hill, RN Note: Problem: Chronic Pain Goals: 1. [...] Lumbar/Sacral Selective Nerve Root INJ (TFE) Bilateral (40054) (12/31/2024 8:39 AM CDT) Narrative RAD_PACS_[facility] - [...] Edith Cramer M.D. FT: FT Report ID: [id number] Reading Location: [id number] [facility] 12/13/2024 10:39 AM CDT EXAM DESCRIPTION: CT [...] Edith Cramer M.D. FT: FT Report ID: [id number] Reading Location: [id number] Procedure Note Edith Welch MD - 12/13/2024 [...] Edith Cramer M.D. FT: FT Report ID: [id number] Reading Location: [place] [address] Dalia Max MD IMG CT PROCEDURES Edited [...] by: Andrew Riley M.D. Cristian Salcedo MD IMG MRI PROCEDURES Fi nal Result from Last 3 Months Insurance [id number] PL[facility] Care Teams Sales Architect Relationship Specialty Start Date End Date Remy Murillo MD [address] [address] PCP - General Family Medicine 08/10/24 Amarjit Ivey MD [facility] [address] [place] [address] Consulting Physician Family Medicine 06/14/20
--- OUTSIDE RECORDS SUMMARY | 2025-01-17 10:28 | XMS_ITS | Clinical Summary ---
Author Organization [facility] Address [facility] [place] [address] Care Team Providers Care Agriculture Laborer Name Role Phone Remy Murillo MD Primary Care Provider Allergies No known active allergies Medications azithromycin (ZITHROMAX) 250 MG tablet Use 2 tablets on day 1 and 1 tablet the remaining 4 days 6 tablet 0 Active Family History Medical History Relation Comments Cancer Father Cancer Mother Relation Status Comments Father Mother Social History Tobacco Use Types Packs/Day Years Used Date Smoking Tobacco: Never Smokeless Tobacco: Never Alcohol Use Standard Drinks/Week Comments No 0 (1 standard drink = 0.6 oz pur e alcohol) AUDIT-C Answer Date Recorded Frequency of Alcohol Consumption Never 09/03/2019 Average Number of Drinks Not on file 020 Frequency of Binge Drinking Not on file 10/2019 Sex and Gender Information Value Date Recorded Sex Assigned at Not on file Legal Sex Male 7:31 PM CDT Gender Identity Not on file Sexual Orientation Not on file Last Filed Vital Signs Vital Sign Reading Time Taken Comments Blood Pressure 134/87 04/23/2020 1:00 AM CDT Pulse 51 04/23/2020 1:00 AM CDT Temperature 36.7 C (98 F) 04/23/2020 1:00 AM CDT Respiratory Rate 18 04/23/2020 1:00 AM CDT Oxygen Saturation 100% 04/23/2020 1:00 AM CDT Inhaled Oxygen Concentration - - Weight 84.8 kg (187 lb) 04/22/2020 11:32 PM CDT Height 180.3 cm (5' 11 ) 04/22/2020 11:32 PM CDT Body Mass Index 26.08 04/22/2020 11:32 PM CDT Plan of Treatment Health Maintenance Due Date Last Done Comments Annual Physical 1986 Hepatitis C 2001 DTaP, Tdap and Td Vaccines ( 1 - Tdap) 2002 Hepatitis B Vaccines (1 of 3 - 19+ 3-dose series) 2002 COVID-19 Vaccine (1 - 2023-2 5 season) 2024 HPV Vaccines Aged Out No longer eligi ble based on patient's age to complete this topic Meningococcal B Vaccine Aged Out No l onger eligible based on patient's age to complete this topic Meningococcal Vaccine Aged Out No wesley nabeel eligible based on patient's age to complete this topic Pneumococcal Vaccine: Pediat rics (0 to 5 Years) and At-Risk Patients (6 to 49 Years) Aged Out No longer eligible b ased on patient's age to complete this topic RSV Immunizations Under 20 Months Aged Out No longer eligible based on patient's age to complete this topic Insurance Care Teams Agriculture Laborer Relationship Specialty Start Date End Date Remy Murillo MD PCP - General FAMILY PRACTICE 09/03/19
--- OUTSIDE RECORDS SUMMARY | 2025-01-17 10:30 | XMS_ITS | Continuity of Care Document ---
Author Organization [employer] [place] Address [address] [place] [address] [address] [place] [address] Phone Care Team Providers Care Senior Business Process Analyst Name Role Phone Omar Cam PT Unavailable Unavailable Procedures Procedure Date Progress Note Therapeutic Activities Manual Therapy Neuromuscular Re-Ed Therapeutic Exercise Neuromuscular Re-Ed Therapeutic Exercise Manual Therapy Therapeutic Activities Therapeutic Exercise Neuromuscular Re-Ed Therapeutic Activities Manual Therapy Therapeutic Exercise Neuromuscular Re-Ed Manual Therapy Therapeutic Activities Manual Therapy Therapeutic Activities Therapeutic Exercise Neuromuscular Re-Ed Therapeutic Activities Neuromuscular Re-Ed Therapeutic Exercise Manual Therapy Therapeutic Activities Neuromuscular Re-Ed Manual Therapy Therapeutic Exercise Neuromuscular Re-Ed Manual Therapy Therapeutic Activities Therapeutic Exercise PT Evaluation Low Complexity Therapeutic Exercise Manual Therapy PT Re-evaluation Therapeutic Activities Neuromuscular Re-Ed Therapeutic Exercise Manual Therapy Therapeutic Activities Neuromuscular Re-Ed Therapeutic Exercise Manual Therapy Therapeutic Activities Neuromuscular Re-Ed Therapeutic Exercise Manual Therapy Therapeutic Activities Neuromuscular Re-Ed Therapeutic Exercise Manual Therapy Neuromuscular Re-Ed Manual Therapy Therapeutic Exercise PT Evaluation Low Complexity Therapeutic Exercise Manual Therapy Advance Directives Directive Yes / No Effective Date File Name No Information Encounters Encounter Description Practice Location Reason(s) For Visit Diagnoses Date Provider Providers Copied on Encounter [facility], [id number], tel:[phone] [place] No Information Tutu Nelson. . [facility] [address], [place], [place], [id number], tel:[phone] [place] No Information Dellorenzo Nelson. . Referring Provider: Access Direct. [facility] [address], [place], [place], [id number], tel:[phone] [place] No Information Tutu Nelson. . Referring Provider: Access Direct. [facility] [address], [place], [place], [id number], tel:[phone] [place] No Information Dellambarry Nelson. . Referring Provider: Access Direct. [facility] [address], [place], [place], [id number], tel:[phone] [place] No Information Tutu Nelson. . Referring Provider: Access Direct. [facility] [facility], [place], [place], [id number], tel:[phone] [place] No Information Godfrey Domínguezla. [address] [facility], [address], [place], [place], [facility], . tel:[phone] Referring Provider: Access Direct. [facility] [address], [place], [place], [id number], tel:[phone] [place] No Information Dellamano Omar. . Referring Provider: Access Direct. [facility] [address], [place], [place], [id number], tel:[phone] [place] No Information Dellamano Omar. . Referring Provider: Access Direct. [facility] [address], [place], [place], [id number], tel:[phone] [place] No Information Dellamano Omar. . Referring Provider: Access Direct. [facility] [address], [place], [place], [id number], tel:[phone] [place] No Information Dellamano Omar. . Referring Provider: Access Direct. [facility] [address], [place], [place], [id number], tel:[phone] [place] No Information Dellamano Omar. . Referring Provider: Access Direct. [facility] [address], [place], [place], [id number], tel:[phone] [place] No Information Dellamano Omar. . Referring Provider: Access Direct. [facility] [address], [place], [place], [id number], tel:[phone] [place] No Information Dellamano Omar. . Referring Provider: Access Direct. [facility], [address], [place], [place], [id number], tel:[phone] [place] No Information Tutu Nelson. . Referring Provider: Access Direct. [facility], [address], [place], [place], [address], tel:[phone] [place] No Information Tutu Nelson. . Referring Provider: Access Direct. [facility], [address] [facility] [address], [place], [place], [address], tel:[phone] [place] No Information Tutu Nelson. . Referring Provider: Access Direct. Family History Family Member Type Diagnosis Age At Onset No Information Payers Payer name Insurance type Covered alliance party ID Authorcalderon chicas(s) [facility] [id number] Social History Type Description Quantity Date Captured [...]
[2025-01-17 10:36] VITALS: BP 137/91; PULSE 68; RESP 18; TEMP 36.7; O2SAT 98
== END 2025-01-17 10:41 | disposition home or self-care (01) ==
PROVIDERS: Emergency Provider Nurse Practitioner Family; PCP Family Medicine
DX: H10.31 Unspecified acute conjunctivitis, right eye (principal); E78.00 Pure hypercholesterolemia, unspecified; Z86.16 Personal history of COVID-19
CPT/HCPCS: 99213; G0463

== ENCOUNTER 2025-02-19 20:18 | Emergency (ER) | payer OTHER, SELFPAY ==
--- NOTE | ~2025-02-19 | XR_ITS ---
CHEST RADIOGRAPH, PA AND LATERAL CLINICAL HISTORY: Palpitations . COMPARISON: None available TECHNIQUE: PA and lateral views of the chest. FINDINGS The cardiomediastinal silhouette is unremarkable. The lungs are clear. IMPRESSION: No focal infiltrate or effusion. Reviewed, dictated and finalized at location A.
[2025-02-19 20:18] VITALS: BP 156/90; PULSE 106; RESP 16; TEMP 36.8; O2SAT 99
--- NOTE | 2025-02-19 20:23 | ECG_ITS ---
Test Date: 2025-02-19 20:26:16 Measurements Intervals [place] Rate: 105 P: 55 MN: 132 QRS: 34 QRSD: 105 T: 41 QT: 334 QTc: 442 Interpretive Statements SINUS TACHYCARDIA MINIMAL Q WAVES- INFERIOR LEADS BASELINE ARTIFACT- I, II, III, AVR, AVL, AVF, V1-V2, V4-V6 BORDERLINE ECG No previous ECG available for comparison Electronically Signed On 02-19-2025 20:37:03 CDT by Joon Lindsay D.O.
[2025-02-19 20:49] LABS: Hematocrit 43.5 % (42.0-52.0); Hemoglobin 14.7 g/dL (14.0-18.0); Immature Granulocyte Absolute 0.01 K/mm3 (0.00-0.031); Immature Granulocyte Percent A 0.2 % (0-0.5); Lymphocytes Absolute Auto 0.52 K/mm3 (0.9-3.2); Lymphocytes Percent Auto 9.9 % (18.3-44.2); Mean Corpuscular HGB Conc 33.8 g/dl (32-36); Mean Corpuscular Hemoglobin 28.3 pg (26-34); Mean Corpuscular Volume 83.7 fl (80-100); Mean Platelet Volume 9.7 fl (7.4-10.4); Monocytes Absolute Auto 0.1 K/mm3 (0.1-0.6); Monocytes Percent Auto 1.3 % (2.6-8.5); Neutrophils Absolute Auto 4.6 K/mm3 (1.3-6.7); Neutrophils Percent Auto 88.6 % (45.5-73.1); Platelet Count Result 193 k/mm3 (150-375); Red Cell Distribution Width 12.2 % (11.5-14.5); White Blood Count 5.2 K/mm3 (4.5-10.0)
[2025-02-19 21:01] LABS: Prothrombin Time 13.2 Seconds (11.1-14.7)
[2025-02-19 21:02] LABS: Alanine Aminotransferase 26 U/L (6-50); Albumin Level 4.5 g/dL (3.5-5.1); Alkaline Phosphatase 66 U/L (38-126); Anion Gap 10 mmol/L (4-12); Aspartate Amino Transferase 30 U/L (17-59); Bilirubin,Total 0.4 mg/dL (0.2-1.3); Blood Urea Nitrogen 21 mg/dL (9-20); Calcium 9.6 mg/dL (8.4-10.2); Carbon Dioxide 23 mmol/L (22-30); Chloride 103 mmol/L (98-107); Estimated CRCL calculation 99 ml/min; Estimated Glomerular Filt Rate > 60; Glucose 227 mg/dL (65-110); Lipase 110 U/L (23-300); Partial Thromboplastin Time 26.9 Seconds (22.3-36.8); Sodium 136 mmol/L (137-145); Total Protein 7.1 g/dL (6.3-8.2)
[2025-02-19 21:14] LABS: Troponin I < 0.012 ng/mL (0.000-0.034)
[2025-02-19 21:38] VITALS: BP 136/83; PULSE 83; RESP 18; O2SAT 99
[2025-02-19 21:43] LABS: Magnesium 1.9 mg/dL (1.6-2.3)
--- NOTE | 2025-02-19 21:57 | ED_ITS ---
HPI - General Adult General Chief complaint: Arrhythmia/Palpitations Stated complaint: PALPITATIONS, TACHYCARDIC Time Seen by Provider: 02/19/25 20:21 History of Present Illness HPI narrative: Patient is 39-year-old gentleman presents emergency department chief complaint of palpitations. Patient reports this evening he had episode where his heart was beating fast patient states he did vagal maneuvers at home and subsequently his heart rate came down. The patient states that he feels okay at this point denies chest pain denies shortness of breath patient reports that he did get a dose of Decadron earlier today Related Data Home Medications ?Medication ?Instructions ?Recorded ?Confirmed ?Last Taken ?Type escitalopram oxalate 10 mg tablet mg 01/17/25 Unknown History rosuvastatin 10 mg tablet mg 01/17/25 Unknown History Allergies Allergy/AdvReac Type Severity Reaction Status Date / Time No Known Allergies Allergy Verified 01/17/25 10:28 Review of Systems 2 Review of Systems: A 10 system review of systems was completed on the patient and is negative except for what is stated in the HPI. Nursing and ancillary documentation was reviewed. [facility] Social History Social History Smoking status: Never smoker Alcohol intake: never Substance use: never Lack of Transportation: No Lack of Food: Never True Current Housing: I Have Housing Concerned About Future Housing: No Difficulty Paying Gas/Electric Bills: No Difficulty Paying for Meds: No Currently Unemployed: No Education: Bachelor's Degree Difficulty w/ Childcare or Family Care: No Exam 2 Narrative: GENERAL: Well-appearing, well-nourished, and in no acute distress. HEAD: Normocephalic, atraumatic. EYES: PERRLA and EOMI. ENT: Nares clear, no rhinorrhea or epistaxis. Mucous membranes moist. NECK: Supple. CHEST: Clear to auscultation. No respiratory distress. HEART: Regular rate and rhythm. No murmur heard. Normal peripheral pulses. ABDOMEN: Soft, nontender, nondistended, normal active bowel sounds. EXTREMITIES: Normal range of motion. No edema. SKIN: Warm, dry, no rash. NEURO: No focal deficits. Alert and oriented x3. PSYCH: Normal mood and affect. Course Vital Signs Vital signs: Vital Signs Temperature 36.8 C 02/19/25 20:18 Pulse Rate 106 H 02/19/25 20:18 Respiratory Rate 16 02/19/25 20:18 Blood Pressure 156/90 H 02/19/25 20:18 Pulse Oximetry 99 02/19/25 20:18 Oxygen Delivery Room Air 02/19/25 20:18 Temperature 36.8 C 02/19/25 20:18 Pulse Rate 83 02/19/25 21:38 Respiratory Rate 18 02/19/25 21:38 Blood Pressure 136/83 02/19/25 21:38 Pulse Oximetry 99 02/19/25 21:38 Oxygen Delivery Room Air 02/19/25 20:18 Medical Decision Making MDM Narrative Medical decision making narrative: Differential diagnosis includes palpitations, dysrhythmia, electrolyte abnormality, dehydration, side effect to the steroids. For her laboratory studies were obtained on the patient that showed a normal CBC CMP did show a elevation in glucose the patient did receive steroid injections recently TSH was 0.427 troponin was negative and repeat was 0.019 which is also negative. Vital Signs Vital Signs: Vital Signs Temperature 36.8 C 02/19/25 20:18 Pulse Rate 106 H 02/19/25 20:18 Respiratory Rate 16 02/19/25 20:18 Blood Pressure 156/90 H 02/19/25 20:18 Pulse Oximetry 99 02/19/25 20:18 Oxygen Delivery Room Air 02/19/25 20:18 Temperature 36.8 C 02/19/25 20:18 Pulse Rate 83 02/19/25 21:38 Respiratory Rate 18 02/19/25 21:38 Blood Pressure 136/83 02/19/25 21:38 Pulse Oximetry 99 02/19/25 21:38 Oxygen Delivery Room Air 02/19/25 20:18 Lab Data 02/19/25 20:45 02/19/25 20:44 Labs: Lab Results 02/19/25 02/19/25 02/19/25 Range/Units 20:44 20:45 23:39 WBC 5.2 (4.5-10.0) K/mm3 RBC 5.20 (4.6-6.20) M/mm3 Hgb 14.7 (14.0-18.0) g/dL Hct 43.5 (42.0-52.0) % MCV 83.7 (80-100) fl MCH 28.3 (26-34) pg MCHC 33.8 (32-36) g/dl RDW 12.2 (11.5-14.5) % Plt Count 193 (150-375) k/mm3 MPV 9.7 (7.4-10.4) fl Immature Gran % (Auto) 0.2 (0-0.5) % Neut % (Auto) 88.6 H (45.5-73.1) % Lymph % (Auto) 9.9 L (18.3-44.2) % [place] % (Auto) 1.3 L (2.6-8.5) % Eos % (Auto) 0.0 (0-4.4) % Baso % (Auto) 0.0 L (0.2-1.2) % Lymph # (Auto) 0.52 L (0.9-3.2) K/mm3 [place] # (Auto) 0.1 (0.1-0.6) K/mm3 Eos # (Auto) 0.0 (0-0.3) K/mm3 Baso # (Auto) 0.0 (0.0-0.1) K/mm3 Abs Immat Gran (auto) 0.01 (0.00-0.031) K/mm3 Absolute Neuts (auto) 4.6 (1.3-6.7) K/mm3 Absolute Nucleated RBC 0.000 (0.0-0.012) K/mm3 Nucleated RBC % 0.0 (0.0-0.2) % PT 13.2 (11.1-14.7) Seconds INR 1.0 APTT 26.9 (22.3-36.8) Seconds Sodium 136 L (137-145) mmol/L Potassium 4.0 (3.4-5.0) mmol/L Chloride 103 (98-107) mmol/L Carbon Dioxide 23 (22-30) mmol/L Anion Gap 10 (4-12) mmol/L BUN 21 H (9-20) mg/dL Creatinine 0.92 (0.7-1.3) mg/dL Estim Creat Clear Calc 99 ml/min Estimated GFR > 60 (59 - ) Glucose 227 H (65-110) mg/dL Calcium 9.6 (8.4-10.2) mg/dL Magnesium 1.9 (1.6-2.3) mg/dL Total Bilirubin 0.4 (0.2-1.3) mg/dL AST 30 (17-59) U/L ALT 26 (6-50) U/L Alkaline Phosphatase 66 (38-126) U/L Troponin I < 0.012 0.019 D (0.000-0.034) ng/mL Total Protein 7.1 (6.3-8.2) g/dL Albumin 4.5 (3.5-5.1) g/dL Lipase 110 (23-300) U/L TSH (Reflex) 0.427 L (0.465-4.68) uIU/mL Free T4 0.99 (0.78-2.19) ng/dL Total T3 0.92 (0.82-1.58) NG/ML Discharge Plan Discharge Clinical Impression: Palpitations Patient Disposition: Home Condition: Stable Instructions: Antibiotic Form, Heart Palpitations (ED) Additional Instructions: Please stay well hydrated. Your blood sugars were elevated today this should be rechecked after the steroids have had time to leave your system. It is recommended you follow-up with your primary care provider due to the palpitations you may need further testing that could include a Holter monitor test. If your symptoms worsen please return to the emergency department. Patient Language: French Prescriptions: No Action escitalopram oxalate 10 mg tablet rosuvastatin 10 mg tablet tobramycin 0.3 % drops 1 drp RIGHT EYE Q4H 7 Days Qty: 5 0RF Follow-up/Referrals: Lidia,Remy Sy M.D. [Primary Care Provider] - Time of Disposition: 00:33
[2025-02-19 22:15] LABS: Thyroid Stimulating Hormone Reflex 0.427 uIU/mL (0.465-4.68)
[2025-02-19 22:44] LABS: Free T4 Free Thyroxine Reflex 0.99 ng/dL (0.78-2.19)
[2025-02-19 23:55] LABS: Total Triiodothyronine (T3) 0.92 NG/ML (0.82-1.58)
--- NOTE | 2025-02-20 00:05 | ECG_ITS ---
Test Date: 2025-02-20 00:01:[address] Rate: 71 P: 40 NV: 138 QRS: 14 QRSD: 92 T: 37 QT: 355 QTc: 387 Interpretive Statements SINUS RHYTHM WITH OCCASIONAL SUPRAVENTRICULAR PREMATURE COMPLEXES BASELINE ARTIFACT- I, II, III, AVR, AVL, V1 BORDERLINE ECG Compared to ECG 02/19/2025 20:26:16 HEART RATE HAS DECREASED Electronically Signed On 02-20-2025 07:19:55 CDT by Joon Lindsay D.O.
[2025-02-20 00:06] LABS: Troponin I 0.019 ng/mL (0.000-0.034)
[2025-02-20 00:11] VITALS: PULSE 68; RESP 14; O2SAT 98
[2025-02-20 00:15] VITALS: PULSE 71; RESP 20; O2SAT 98
[2025-02-20 00:30] VITALS: PULSE 62; RESP 12; O2SAT 96
[2025-02-20 00:31] VITALS: BP 117/75; PULSE 72; RESP 14; O2SAT 96
== END 2025-02-20 00:45 | disposition home or self-care (01) ==
PROVIDERS: Emergency Provider Emergency Medicine; PCP Family Medicine
DX: R00.2 Palpitations (principal)
CPT/HCPCS: 36415; 71046; 80053; 83690; 83735; 84439; 84443; 84480; 84484; 85025; 85610; 85730; 93005; 99284

== ENCOUNTER 2025-07-06 09:07 | Outpatient (CLI) | payer OTHER, SELFPAY ==
--- OUTSIDE RECORDS SUMMARY | 2025-07-06 10:03 | XMS_ITS | Clinical Summary ---
Author Organization [facility] Address [address] [place] [address] Care Team Providers Care Document Control Manager Name Role Phone Amarjit Ivey MD Primary Care Provider + [phone] Source Comments [facility],non-owned Affiliates and Associated Physician Practices is amultiple site organization consisting of ambulatory clinics and hospital sitesin [place], [place], [place] and [place]. This disclosure is being madepursuant to the Care Everywhere program and may not contain all information available regarding this patient. Last updated [email or web address] [facility] Allergies No known active allergies Medications * [...] on file Legal Sex Male 4:36 PM ENVIRONMENTAL INSPECTOR Gender Identity Not on file Sexual Orientation Not on file Last Filed Vital Signs Vital Sign Reading Time Taken Comments Blood Pressure 130/70 10/21/2021 12:53 PM ENVIRONMENTAL INSPECTOR Pulse 55 10/21/2021 12:51 PM ENVIRONMENTAL INSPECTOR Temperature 36.3 C (97.3 F) 10/21/2021 12:51 PM ENVIRONMENTAL INSPECTOR Respiratory Rate 18 10/21/2021 12:51 PM ENVIRONMENTAL INSPECTOR Oxygen Saturation 100% 10/21/2021 12:51 PM ENVIRONMENTAL INSPECTOR Inhaled Oxygen Concentration - - Weight 77.1 kg (170 lb) 10/21/2021 12:53 PM ENVIRONMENTAL INSPECTOR Height 180.3 cm (5' 11) 10/21/2021 12:53 PM ENVIRONMENTAL INSPECTOR Body Mass Index 23.71 10/21/2021 12:53 PM ENVIRONMENTAL INSPECTOR Plan of Treatment Health Maintenance Due Date Last Done Comments LIPID TESTING 1983 HIV SCREENING 1998 HEPATITIS C SCREENING 04/26/2001 DTAP/TDAP/TD VACCINES (1 - Tdap) 2002 HEPATITIS B VACCINE (1 of 3 - 19+ 3-dose series) 2002 HPV VACCINE (1 - 3-dose SCDM series) 2010 DEPRESSION SCREENING 09/02/2024 COVID-19 VACCINE (1 - 2023-2 5 season) 2025 INFLUENZA VACCINE (#1) 2025 9, 07/01/2018, 05/30/2016 ZOSTER VACCINE (1 of 2) [...] patient's age to [place] [id number] Care Teams Document Control Manager Relationship Specialty Start Date End Date Amarjit Ivey MD [address] [facility] [address] [place] [address] PCP - General Family Medicine 10/21/21
--- OUTSIDE RECORDS SUMMARY | 2025-07-06 10:03 | XMS_ITS | Clinical Summary ---
Author Organization [facility] Address [facility] [place] [address] Care Team Providers Care Car Checker Name Role Phone Remy Murillo MD Primary [...] 11:32 PM CDT Height 180.3 cm (5' 11) 04/22/2020 11:32 PM CDT Body Mass Index 26.08 04/22/2020 11:32 PM CDT Plan of Treatment Health Maintenance Due Date Last Done Comments Annual Physical 1986 Hepatitis C 2001 DTaP, Tdap and Td Vaccines ( 1 - Tdap) 2002 Hepatitis B Vaccines (1 of 3 - 19+ 3-dose series) 2002 HPV Vaccines (1 - 3-dose SCD M series) 2010 COVID-19 Vaccine ( - 2024-2 6 season) 2025 Influenza Adult (#1) 2025 05/27/2019, 05/30/2016 Hepatitis A Vaccines Aged Out No long er eligible based on patient's age to complete this topic Meningococcal B Vaccine Aged Out No l onger eligible based on patient's age to complete this topic Meningococcal Vaccine Aged Out No wesley nabeel eligible based on patient's age to complete this topic Pneumococcal Vaccine: Pediatrics (0 to 5 Years) and At-Risk Patients (6 to 49 Years) Aged Out No longer eligible b ased on patient's age to complete this topic RSV Immunizations Under 20 Months Aged Out No longer eligible b ased on patient's age to complete this topic Insurance [employer] Care Teams Car Checker Relationship Specialty Start Date End Date Remy Murillo MD PCP - General FAMILY PRACTICE 09/03/19
--- OUTSIDE RECORDS SUMMARY | 2025-07-06 10:03 | XMS_ITS | Clinical Summary ---
Author Organization [facility] [address] Address [address] [place] [address] Care Team Providers Care Charter Boat Captain Name Role Phone Amarjit Ivey MD Unavailable [phone] Remy Murillo MD Primary Care Provi clara Allergies No known active allergies Medications escitalopram (LEXAPRO) 10 mg tabletIndicatio ns:Generalized Anxiety Disorder Take 1 tablet (10 mg total) by mouth daily 30 tablet 1 01/12/2025 Active baclofen (LIORESAL) 10 mg tablet Take 1 tablet (10 mg total) by mouth 3 (three) times a day as needed for muscle spasms 90 tablet 5 02/09/2025 Active gabapentin (NEURONTIN) 100 mg capsule Take 1 capsule (100 mg total) by mouth 3 (three) times a day for 20 days 60 capsule 02/19/2025 Active rosuvastatin (CRESTOR) 10 mg tablet TAKE 1 TABLET(10 MG) BY MOUTH DAILY 100 tablet 1 04/22/2025 Active Active Problems Problem Noted Date Diagnosed Date Lumbar pars defect 02/23/2025 Lumbar pain 02/23/2025 Cervical spondylosis 02/19/2025 Anxiety 01/12/2025 Lumbar radiculopathy 12/31/2024 Neuropathy 09/27/2021 [...] Encounters Date Type Department Care Team Description 05/26/2025 3:30 PM CDT Procedure visit [facility] Neu[facility] [address] [place] [phone] Zeinab, Memo Leung MD Neuropathy from Last 3 Months Immunizations Immunization Administration [...] Miller Prostate cancer Father Miller Anemia Mother [place] Cancer Mother Asher Relation Name Status Comments Father Miller Alive Maternal Grandfather Maternal Grandmother Mother [place] Alive Paternal Grandfather Paternal Grandmother Social History Tobacco Use Types Packs/Day Years Used Date Smoking Tobacco: Never Smokeless Tobacco: Never Alcohol Use Standard Drinks/Week Comments Not Currently 0 (1 standard drink = 0.6 oz pur e alcohol) AUDIT-C Answer Date Recorded Q1: How often do you have a drink containing alcohol? Never 02/11/2025 Q2: How many drinks containi ng alcohol do you have on a typical day when you are drinking? Patient does not drink Q3: How often do you have si x or more drinks on one occasion? Never 02/11/2025 PHQ-2 Answer Date Recorded PHQ-2 Total Score [...] money to get more. Never true 09/30/2024 Personal Safety Answer Date Recorded Have you ever been in or are you currently in a harmful physical or emotional relationship or is someone making you feel afraid or unsafe? 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 Not on file Not on file Last Filed Vital Signs Vital Sign Reading Time Taken Comments Blood Pressure 118/80 02/24/2025 11:12 AM CDT Pulse 56 02/24/2025 11:12 AM CDT Temperature 37 C (98.6 F) 02/19/2025 10:20 AM CDT Respiratory Rate 18 02/24/2025 11:12 AM CDT Oxygen Saturation 98% 02/24/2025 11:12 AM CDT Inhaled Oxygen Concentration - - Weight 76.7 kg (169 lb) 03/11/2025 5:31 PM CDT Height 180.3 cm (5' 11) 03/11/2025 5:31 PM CDT Body Mass Index 23.57 03/11/2025 5:31 PM CDT Plan of Treatment Health Maintenance Due Date Last Done Comments Hepatitis C Screening 1983 Prostate Cancer Screening-PSA 1983 Hepatitis B Screening 2001 HPV Vaccines (1 - 3-dose SCDM series) 2010 Varicella Vaccines (1 of 2 - 13+ 2-dose series) 11/27/2018 Influenza Vaccine (#1) 2025 4, 05/27/2019, 05/27/2019, Additional history exists Depression Screening 08/10/2025 08/10/2024, 03/21/2021, 01/26/2021, Additional history exists Regular Well Visit/Exam 18-64 10/19/2025 10/19/2024, 01/26/2021, 05/13/2020, Additional history exists DTaP/Tdap/Td Vaccine (2 - Td or Tdap) 10/30/2025 10/31/2015 Pneumococcal vaccine <65 Aged Out No longer eligible based on patient's age to complete this topic Goals Goal Patient Goal Type Associated Problems Recent Progress Patient-Stated? Author CCM Chronic Pain Care Plan Chronic Care Management No change(02/11 10:02 AM CDT) No Charlene Hill, RN Note: Problem: Chronic Pain Goals: 1. Minimize further functional decline 2. Maximize quality of life 3. Control pain Strategies: - Activity/exercise program recommendation - Conservative stepwise pain medicine strategy with multi-disciplinary approach - Recommend healthy lifestyle strategies and compensatory methods as needed Procedures Procedure Name Priority Date/Time Associated Diagnosis Comments EMG/NCV Routine 05/26/2025 3:50 PM CDT Neuropathy from Last 3 Months Results * EMG/NCV (05/26/2025 3:50 PM CDT) Anatomical Region Laterality Modality Other Narrative 05/26/2025 3:50 PM CDT Memo Arriola Si, MD 05/27/2025 8:18 AM EMG/NCV - Date/Time: 05/26/2025 3:50 PM Performed by: Memo Arriola Si, MD Authorized by: Memo Arriola Si, MD Local anesthesia used: no Anesthesia: Local anesthesia used: no Sedation: Patient sedated: no Comments: See attached procedure documentation. us Memo Arriola MD NEUROLOGY ORDERABLES Final Resul t from Last 3 Months Insurance [facility] CHO[facility] PLUS [facility] CHO[facility] PLUS Care Teams Charter Boat Captain Relationship Specialty Start Date End Date Remy Murillo MD [address] [address] PCP - General Family Medicine 08/10/24 Amarjit Ivey MD Consulting Physician Family Medicine 06/14/20
--- OUTSIDE RECORDS SUMMARY | 2025-07-06 10:03 | XMS_ITS | Clinical Summary ---
Author Organization [facility] Address [address] [place] [address] [place] [phone] Phone Care Team Providers Care Weed Control Inspector Name Role Phone Provider, None Primary Care [...] 3:53 PM CDT Height 180.3 cm (5' 11) 04/10/2016 3:53 PM CDT Body Mass Index 24.83 04/10/2016 3:53 PM CDT Plan of Treatment Health Maintenance Due Date Last Done Comments Hepatitis C Virus (HCV) Screening 1983 TdaP Immunization 1983 Hepatitis B Immunization (1 of 3 - 19+ 3-dose series) 2002 Human Papillomavirus (HPV) Immunization (1 - 3-dose SCDM series) 2010 Influenza Immunization (#1) 2025 SARS-COV-2 Immunization ( - season) 2025 Respiratory Syncytial Virus (RSV) Immunization (Adult) (1 - 1-dose 75+ series) 2058 Meningococcal Immunization (ACWY) Aged Out No longer eligible based on patient's age to complete this topic Pneumococcal Immunization Combined Aged Out No longer eligible based on patient's age to complete this topic Rotavirus Immunization Aged Out No lo nger eligible based on patient's age to complete this topic [place] [place] [address] Care Teams Weed Control Inspector Relationship Specialty Start Date End Date Provider, None [place] PCP - General 04/10/16
[2025-07-06 10:14] LABS: Alanine Aminotransferase 31 U/L (6-50); Albumin Level 4.5 g/dL (3.5-5.1); Alkaline Phosphatase 60 U/L (38-126); Anion Gap 6 mmol/L (4-12); Aspartate Amino Transferase 31 U/L (17-59); Bilirubin,Total 0.5 mg/dL (0.2-1.3); Blood Urea Nitrogen 18 mg/dL (9-20); Calcium 9.4 mg/dL (8.4-10.2); Carbon Dioxide 30 mmol/L (22-30); Chloride 102 mmol/L (98-107); Cholesterol 146 mg/dL (0-200); Estimated Glomerular Filt Rate > 60; Glucose 97 mg/dL (65-110); HDL Direct 49 mg/dL; Potassium 4.1 mmol/L (3.4-5.0); Sodium 138 mmol/L (137-145); Total Protein 6.9 g/dL (6.3-8.2); Triglycerides 73 mg/dL (<150)
[2025-07-06 11:01] LABS: Creatine Kinase 184 U/L (55-170)
[2025-07-06 11:29] LABS: Hemoglobin A1C 5.0 % (<5.7)
== END 2025-07-06 09:08 | disposition home or self-care (01) ==
LOC: ANHLAB 09:09
PROVIDERS: PCP Nurse Practitioner Family; Visit Provider Nurse Practitioner Family
DX: R73.09 Other abnormal glucose (principal); E78.5 Hyperlipidemia, unspecified; Z13.220 Encounter for screening for lipoid disorders; Z82.49 Family history of ischemic heart disease and other diseases of the circulatory system; R79.89 Other specified abnormal findings of blood chemistry
CPT/HCPCS: 36415; 80053; 80061; 82550; 83036; 83695